=== PATIENT | female | born 1985 | race American Indian/Alaskan Native ===

== ENCOUNTER 2017-07-14 00:20 | Emergency (ER) | payer BC ==
[2017-07-14 00:37] VITALS: BP 131/76
[2017-07-14] MEDS ORDERED: MARCAINE 0.5% INFILTRATI ONE ×2 (04:19→04:29)
--- NOTE | 2017-07-14 04:41 | Emergency Department Report ---
ED Laceration HPI - HPI Chief Complaint: Wound/Laceration Stated Complaint: LACERATION TO LEFT SIDE OF EYE Time Seen by Provider: 07/14/17 04:10 Occurred When: Yesterday (11:30 PM 07/13/2017) Location: Head (left facial area) Severity: mild (1/10 and sore. Nothing makes it better and nothing makes it worse.) Tetanus Status: Not up to Date Laceration Symptoms: Yes Pain (1/10, laceration site left facial area), No Foreign Body Sensation, No Numbness, No Weakness Other History: Pt here report that she was putting away dishes and covered and covered door was open and she accidentally hit the left side of her face. Denies any object was broken off. She reports that there are a lot of bleeding and she applied warm compresses and bandage to face and came to the emergency room. Tetanus vaccine is 10 years old. Pain 1 out of 10 and feels sore nothing makes it better and nothing makes it worse. No [id number] medication taken. Denies any loss of consciousness, dizziness, nausea or vomiting. ED Review of Systems ROS: Stated complaint: LACERATION TO LEFT SIDE OF EYE Other details as noted in HPI Comment: All other systems reviewed and negative Constitutional: no symptoms reported Eyes: denies: vision change Respiratory: no symptoms reported Cardiovascular: denies: chest pain, palpitations, dyspnea on exertion, edema, syncope, paroxysmal nocturnal dyspnea Gastrointestinal: denies: nausea, vomiting Musculoskeletal: denies: back pain, joint swelling, arthralgia, myalgia Skin: other (laceration to the left facial area beside eyebrow) Neurological: denies: headache, weakness, numbness, paresthesias, confusion, abnormal gait, vertigo ED Past Medical Hx - Past Medical History Previous Medical History?: No - Surgical History Past Surgical History?: No - Family History Family history: no significant - Social History Smoking Status: Never Smoker Substance Use Type: None - Medications Home Medications: Home Medications Medication Instructions Recorded Confirmed Last Taken Type Cephalexin [Keflex] 500 mg PO Q8HR 7 Days #21 cap 07/14/17 Unknown Rx Ibuprofen [Motrin] 600 mg PO Q8H PRN #12 tablet 07/14/17 Unknown Rx Laceration Physical Exam - Exam General: Vital signs noted. No distress. Alert and acting appropriately. This is a 32-year-old female well-nourished well-developed and nontoxic in appearance. Head: Number systolic, atraumatic. Face: Laceration to the facial area. 0.25 cm. Pt able to open and close mouth without any difficulties and no bony tenderness. Lungs: Clear to auscultate bilaterally, no rhonchi wheezes or rales CV: Tachycardia at 104, regular rhythm, S1 and S2. No murmur Extremity: Clubbing, cyanosis or edema. +2 pulses to all extremities. Neurological: GCS is 15, alert and oriented 3, no facial drooping. Speech is clear. Negative Romberg, negative pronator drift. Normal gait. No motor or sensory deficit. Reflexes are normal. Psych: Normal mood and behavior. Wound Length (cm): 0 (0.25 centimeter ,superficial laceration) Laceration Location: Head (left facial area beside eyebrow. Irregular.) Full Body Front + Back: 1 - Patient with 0.25 cm laceration, irregular with bleeding into left facial area beside eyebrow. No overt foreign body noted. Wound explored. Wound that is clean. Bleeding noted. Laceration Exam: Yes Normal Distal CMS, No Foreign Body, No Exposed Tendon, Vessel, or Nerve, No Tendon Injury ED Course Vital Signs 07/14/17 00:33 Temperature 98.6 F Pulse Rate 106 H Respiratory 20 Rate Blood Pressure 131/76 Blood Pressure 131/76 [Right] O2 Sat by Pulse 98 Oximetry Vital Signs 07/14/17 07/14/17 00:33 04:47 Temperature 98.6 F Pulse Rate 106 H 88 Respiratory 20 Rate Blood Pressure 131/76 Blood Pressure 131/76 [Right] O2 Sat by Pulse 98 Oximetry - Reevaluation(s) Reevaluation #1: 07/14/17 04:48 Patient given Keflex 500 mg by mouth, Boostrix 0.5 mL IM. See procedure note for laceration repair - Laceration /Wound Repair Left Face Wound Location: face (left facial area outer, beside eyebrow) Wound Length (cm): 0 (0.25 cm) Wound's Depth, Shape: superficial, irregular (with bleed in) Wound Explored: clean Irrigated w/ Saline (ccs): 150 Betadine Prep?: Yes Anesthesia: 0.5% Sensorcaine (0.5 mL) Volume Anesthetic (ccs): 0 (0.5 mL) Wound Debrided: moderate Wound Repaired With: sutures Suture Size/Type: 6:0 (chromic) Number of Sutures: 4 Sterile Dressing Applied?: Yes Progress: Absorbable suture placed the laceration site. Wound edges well approximated. ED Medical Decision Making - Medical Decision Making ED course: She is here status post facial injury with laceration to left facial area. She denies any loss of consciousness with injury to her facial area. She reports that they were swollen and she applied ice and swelling has gone down but report bleeding. Physical findings normal neurological exam and no bony tenderness to facial area. No contusion but laceration noted to left facial area. See procedure note for details on laceration repair. Based on [place] CT head rule patient does not need CT scan of the head. Patient is stable and was given Boostrix 0.5 mL to update tetanus and Keflex 500 mg by mouth empirically to prevent infection. She has absorbable sutures so I told her she needs to follow up with her primary care physician in 3-5 days. She does have a primary care physician. Discharged home with prescription for Motrin and Keflex Critical care attestation.: If time is entered above; I have spent that time in minutes in the direct care of this critically ill patient, excluding procedure time. ED Disposition Clinical Impression: Simple laceration of face Qualifiers: Encounter type: initial encounter Qualified Code(s): S01.81XA - Laceration without foreign body of other part of head, initial encounter Disposition: DC-01 TO HOME OR SELFCARE Is pt being admited?: No Does the pt Need Aspirin: No Condition: Stable Instructions: Laceration (ED), Absorbable Suture Care (ED) Additional Instructions: Please keep affected area clean and dry Follow-up with your primary care physician in 3-5 days There is a possibility that he'll have a small scar site, follow-up with facial plastics for further evaluation and treatment. Please see referral for phone number and address in discharge instruction paperwork Take antibiotic to prevent infection Prescriptions: Cephalexin [Keflex] 500 mg PO Q8HR 7 Days #21 cap Ibuprofen [Motrin] 600 mg PO Q8H PRN #12 tablet PRN Reason: Pain Referrals: Your, primary care physician [Other] - 3-5 Days THOMAS MOSER MD [Staff Physician] - 2-3 Days Forms: Work/School Release Form(ED)
[2017-07-14] MEDS ORDERED: KEFLEX PO ONE (04:47)
[2017-07-14] MEDS ORDERED: BOOSTRIX IM ONE (04:47)
== END 2017-07-14 04:58 | disposition home or self-care (01) ==
LOC: ED 00:20
DX: S01.81XA Laceration without foreign body of other part of head, initial encounter (principal); X58.XXXA Exposure to other specified factors, initial encounter; Y93.89 Activity, other specified; Y92.89 Other specified places as the place of occurrence of the external cause; Y99.8 Other external cause status
CPT/HCPCS: 90471; 90715; 96372; 99282